=== PATIENT | male | born 1975 | race Caucasian/White ===

== ENCOUNTER 2017-08-22 05:34 | Day surgery (SDC) | payer BC ==
[2017-08-22] MEDS ORDERED: CEFAZOLIN 2 GM/50 ML (PMX) 50 ML IVPB (06:00)
[2017-08-22] MEDS ORDERED: BUPIVACAINE 0.5% (SDV) 30 ML INJ (06:48)
[2017-08-22] MEDS ORDERED: PROPOFOL 20 ML (07:39)
[2017-08-22] MEDS ORDERED: MIDAZOLAM 1 MG/ML 2 ML INJ (07:40)
[2017-08-22] MEDS ORDERED: METOCLOPRAMIDE 10 MG INJ (07:40)
[2017-08-22] MEDS ORDERED: KETOROLAC 30 MG INJ (07:40)
[2017-08-22] MEDS ORDERED: FENTAnyl 50 MCG/ML VIAL (07:40)
[2017-08-22] MEDS ORDERED: CEFAZOLIN 1 GM INJ (07:40)
[2017-08-22] MEDS ORDERED: ROPIVACAINE 0.5 % 30 ML VIAL (07:42)
[2017-08-22] MEDS ORDERED: EPHEDrine SULFATE 50 MG/5 ML SYG (08:05)
[2017-08-22] MEDS ORDERED: ONDANSETRON 4 MG INJ (08:11)
[2017-08-22] MEDS ORDERED: HYDROmorphONE (0.2 MG/ML) 10ML SYG IV ×3 (09:00)
[2017-08-22] MEDS ORDERED: DIPHENHYDRAMINE 50 MG INJ IV (09:00)
[2017-08-22] MEDS ORDERED: OXYCODONE/ACETAMINOPHEN (5/325) TAB PO ×2 (09:00)
[2017-08-22] MEDS: BUPIVACAINE 0.5% (SDV) 30 ML INJ INJ (10:00)
[2017-08-22] MEDS: POLYMYXIN/BACITRACIN 1L IRRIG (10:00)
[2017-08-22] MEDS: ONDANSETRON 4 MG INJ IV (10:43)
[2017-08-22] MEDS: MEPERIDINE 25 MG INJ IV (10:43)
== END 2017-08-22 12:40 | disposition home or self-care (01) ==
LOC: SDS 05:34
DX: M21.612 Bunion of left foot (principal); M20.42 Other hammer toe(s) (acquired), left foot
CPT/HCPCS: 28285; 73630-LT; 88304; 88311

== ENCOUNTER 2017-10-18 20:09 | Inpatient (IN) | payer BC ==
[2017-10-18] MEDS ORDERED: BISACODYL (EC) 5 MG TAB PO (22:00)
[2017-10-18] MEDS: SOD CHLORIDE 0.9% 1,000 ML IV (22:48)
[2017-10-19] MEDS: PANTOPRAZOLE (EC) 40 MG TAB PO (05:56)
[2017-10-19 05:57] LABS: ADD MAN DIFF? NO
[2017-10-19 06:03] LABS: WHITE BLOOD COUNT 5.3 10^3/ul (4.8-10.8)
[2017-10-19 06:03] LABS: BASOPHILS % 0.6 % (0.0-2.0); EOSINOPHILS # 0.2 10^3/ul (0.0-0.5); EOSINOPHILS % 3.6 % (0.0-7.0); HEMATOCRIT 38.5 % (42.0-52.0); HEMOGLOBIN 13.2 g/dl (14.0-18.0); LYMPHOCYTES # 1.9 10^3/ul (0.8-2.9); LYMPHOCYTES % 35.8 % (15.0-51.0); MEAN CORPUSCULAR HEMOGLOBIN 33.8 pg (29.0-33.0); MEAN CORPUSCULAR HGB CONC 34.3 g/dl (32.0-37.0); MEAN CORPUSCULAR VOLUME 98.5 fl (82.0-101.0); MEAN PLATELET VOLUME 10.4 fl (7.4-10.4); MONOCYTE # 0.3 10^3/ul (0.3-0.9); MONOCYTES % 6.4 % (0.0-11.0); NEUTROPHIL # 2.8 10^3/ul (1.6-7.5); NEUTROPHILS % 53.4 % (39.0-77.0); PLATELET COUNT 275 10^3/UL (140-415); RED BLOOD COUNT 3.91 10^6/ul (4.70-6.10); RED CELL DISTRIBUTION WIDTH 11.9 % (11.5-14.5)
[2017-10-19 06:39] LABS: ALANINE AMINOTRANSFERASE 24 IU/L (13-69); ALBUMIN 3.3 g/dl (3.3-4.9); ALBUMIN/GLOBULIN RATIO 1.26; ALKALINE PHOSPHATASE 51 IU/L (42-121); ANION GAP 8 (8-16); ASPARTATE AMINO TRANSFERASE 21 IU/L (15-46); BILIRUBIN,INDIRECT 0.7 mg/dl (0-1.1); BILIRUBIN,TOTAL 0.7 mg/dl (0.2-1.3); BLOOD UREA NITROGEN 12 mg/dl (7-20); CALCIUM 8.8 mg/dl (8.4-10.2); CARBON DIOXIDE 30 mmol/L (21-31); CHLORIDE 109 mmol/L (97-110); CREATININE 0.92 mg/dl (0.61-1.24); GLUCOSE 90 mg/dl (70-220); POTASSIUM 4.2 mmol/L (3.5-5.1); SODIUM 143 mmol/L (135-144); TOTAL PROTEIN 5.9 g/dl (6.1-8.1)
[2017-10-19] MEDS: CARBIDOPA XX (11:35)
[2017-10-19] MEDS: LEVODOPA XX (11:35)
[2017-10-19] MEDS ORDERED: HYDROCODONE/APAP (5/325) TAB PO (12:00)
[2017-10-19] MEDS: ACETAMINOPHEN 325 MG TAB PO (12:02)
[2017-10-19] MEDS: CEFAZOLIN 1 GM/50 ML (PMX) 50 ML IVPB ×2 (15:57→23:32)
[2017-10-19 17:25] LABS: AMPHETAMINE/METHAMPHETAMINE Negative (NEGATIVE); CANNABINOIDS Negative (NEGATIVE)
[2017-10-19 17:28] LABS: C-REACTIVE PROTEIN < 0.5 mg/dl (0.0-0.9)
[2017-10-19 17:29] LABS: BARBITURATES Negative (NEGATIVE); BENZODIAZEPINES Negative (NEGATIVE); COCAINE Negative (NEGATIVE); OPIATES Negative (NEGATIVE)
[2017-10-19 18:34] LABS: ERYTHROCYTE SEDIMENTATION RATE 5 mm/Hr (0-15)
[2017-10-19] MEDS: SOD CHLORIDE 0.9% 1,000 ML IV (19:14)
[2017-10-19] MEDS ORDERED: KETOROLAC 15 MG INJ IV (20:00)
[2017-10-19] MEDS: traMADol 50 MG TAB PO (20:53)
[2017-10-19] MEDS: LORAZEPAM 2 MG INJ IV (20:58)
[2017-10-20] MEDS: PANTOPRAZOLE (EC) 40 MG TAB PO (06:23)
[2017-10-20] MEDS: CEFAZOLIN 1 GM/50 ML (PMX) 50 ML IVPB ×3 (06:23→21:06)
[2017-10-20] MEDS: LEVODOPA XX (09:00)
[2017-10-20] MEDS: CARBIDOPA XX (09:00)
[2017-10-20] MEDS: CARBIDOPA/LEVODOPA (25/250) TAB PO ×3 (12:46→21:06)
[2017-10-20] MEDS ORDERED: BISACODYL (EC) 5 MG TAB PO (13:00)
[2017-10-20] MEDS: SOD CHLORIDE 0.9% 1,000 ML IV ×2 (14:00→18:16)
[2017-10-20] MEDS: MELOXICAM 7.5 MG TAB PO (14:41)
[2017-10-20] MEDS: CYCLOBENZAPRINE 10 MG TAB PO ×2 (14:41→21:06)
[2017-10-21] MEDS: PANTOPRAZOLE (EC) 40 MG TAB PO (05:51)
[2017-10-21] MEDS: CEFAZOLIN 1 GM/50 ML (PMX) 50 ML IVPB ×3 (05:51→21:41)
[2017-10-21] MEDS: MELOXICAM 7.5 MG TAB PO (09:12)
[2017-10-21] MEDS: CARBIDOPA/LEVODOPA (25/250) TAB PO ×4 (09:13→21:41)
[2017-10-21] MEDS: CYCLOBENZAPRINE 10 MG TAB PO ×3 (09:13→21:41)
[2017-10-21] MEDS: MAGNESIUM CITRATE 300 ML BTL PO (14:28)
[2017-10-21] MEDS: SOD CHLORIDE 0.9% 1,000 ML IV (16:51)
[2017-10-22] MEDS: PANTOPRAZOLE (EC) 40 MG TAB PO (05:42)
[2017-10-22] MEDS: CEFAZOLIN 1 GM/50 ML (PMX) 50 ML IVPB ×3 (05:42→22:24)
[2017-10-22] MEDS: SOD CHLORIDE 0.9% 1,000 ML IV ×2 (05:51→18:25)
[2017-10-22] MEDS: CYCLOBENZAPRINE 10 MG TAB PO ×3 (08:13→21:00)
[2017-10-22] MEDS: CARBIDOPA/LEVODOPA (25/250) TAB PO ×4 (08:13→21:00)
[2017-10-22] MEDS: MELOXICAM 7.5 MG TAB PO (08:13)
[2017-10-22 13:36] LABS: C-REACTIVE PROTEIN < 0.5 mg/dl (0.0-0.9)
[2017-10-22 14:19] LABS: ERYTHROCYTE SEDIMENTATION RATE 5 mm/Hr (0-15)
[2017-10-22 16:09] LABS: ADD UMIC NO; UR ASCORBIC ACID NEGATIVE (NEGATIVE); UR BILIRUBIN (Dip) NEGATIVE (NEGATIVE); UR BLOOD (Dip) NEGATIVE (NEGATIVE); UR CLARITY CLEAR (CLEAR); UR COLOR YELLOW (YELLOW); UR GLUCOSE (Dip) NEGATIVE (NEGATIVE); UR KETONES (Dip) TRACE mg/dL (NEGATIVE); UR LEUKOCYTE ESTERASE (Dip) NEGATIVE Leu/ul (NEGATIVE); UR NITRITE (Dip) NEGATIVE (NEGATIVE); UR TOTAL PROTEIN (Dip) NEGATIVE (NEGATIVE); UR UROBILINOGEN (Dip) NEGATIVE (NEGATIVE)
[2017-10-23] MEDS: PANTOPRAZOLE (EC) 40 MG TAB PO (05:42)
[2017-10-23] MEDS: CEFAZOLIN 1 GM/50 ML (PMX) 50 ML IVPB ×3 (05:42→22:15)
[2017-10-23 06:21] LABS: ADD MAN DIFF? NO
[2017-10-23 06:43] LABS: BASOPHILS % 0.7 % (0.0-2.0); EOSINOPHILS # 0.2 10^3/ul (0.0-0.5); EOSINOPHILS % 3.3 % (0.0-7.0); HEMATOCRIT 40.5 % (42.0-52.0); LYMPHOCYTES # 1.9 10^3/ul (0.8-2.9); LYMPHOCYTES % 31.3 % (15.0-51.0); MEAN CORPUSCULAR HEMOGLOBIN 33.7 pg (29.0-33.0); MEAN CORPUSCULAR HGB CONC 34.6 g/dl (32.0-37.0); MEAN CORPUSCULAR VOLUME 97.4 fl (82.0-101.0); MEAN PLATELET VOLUME 10.6 fl (7.4-10.4); MONOCYTE # 0.5 10^3/ul (0.3-0.9); MONOCYTES % 7.5 % (0.0-11.0); NEUTROPHIL # 3.5 10^3/ul (1.6-7.5); PLATELET COUNT 297 10^3/UL (140-415); RED BLOOD COUNT 4.16 10^6/ul (4.70-6.10); RED CELL DISTRIBUTION WIDTH 11.7 % (11.5-14.5)
[2017-10-23 07:01] LABS: ANION GAP 7 (8-16); BLOOD UREA NITROGEN 21 mg/dl (7-20); CALCIUM 8.7 mg/dl (8.4-10.2); CARBON DIOXIDE 31 mmol/L (21-31); CHLORIDE 108 mmol/L (97-110); CREATININE 0.86 mg/dl (0.61-1.24); GLUCOSE 89 mg/dl (70-220); POTASSIUM 4.1 mmol/L (3.5-5.1); SODIUM 142 mmol/L (135-144)
[2017-10-23] MEDS: CYCLOBENZAPRINE 10 MG TAB PO ×3 (08:56→22:15)
[2017-10-23] MEDS: MELOXICAM 7.5 MG TAB PO (08:56)
[2017-10-23] MEDS: CARBIDOPA/LEVODOPA (25/250) TAB PO ×4 (08:56→22:15)
[2017-10-23 16:55] LABS: CREATINE KINASE 40 IU/L (23-200)
[2017-10-23] MEDS: SOD CHLORIDE 0.9% 1,000 ML IV (18:39)
[2017-10-24] MEDS: CEFAZOLIN 1 GM/50 ML (PMX) 50 ML IVPB ×3 (05:11→21:28)
[2017-10-24] MEDS: PANTOPRAZOLE (EC) 40 MG TAB PO (05:11)
[2017-10-24] MEDS: MELOXICAM 7.5 MG TAB PO (09:04)
[2017-10-24] MEDS: CARBIDOPA/LEVODOPA (25/250) TAB PO ×5 (09:04→21:29)
[2017-10-24] MEDS: CYCLOBENZAPRINE 10 MG TAB PO ×3 (09:04→21:28)
[2017-10-24 14:11] LABS: ANA SCREEN NEGATIVE (NEGATIVE)
[2017-10-24] MEDS ORDERED: SOD CHLORIDE 0.9% 100 ML (15:57)
[2017-10-24] MEDS ORDERED: IOHEXOL 100 ML (15:57)
[2017-10-24] MEDS: SOD CHLORIDE 0.9% 1,000 ML IV ×2 (16:14→18:02)
[2017-10-25] MEDS: PANTOPRAZOLE (EC) 40 MG TAB PO (06:13)
[2017-10-25] MEDS: CEFAZOLIN 1 GM/50 ML (PMX) 50 ML IVPB ×2 (06:13→13:14)
[2017-10-25 06:16] LABS: ADD MAN DIFF? NO
[2017-10-25 06:19] LABS: BASOPHILS % 0.7 % (0.0-2.0); EOSINOPHILS # 0.2 10^3/ul (0.0-0.5); EOSINOPHILS % 3.5 % (0.0-7.0); HEMATOCRIT 40.1 % (42.0-52.0); HEMOGLOBIN 13.8 g/dl (14.0-18.0); LYMPHOCYTES # 1.8 10^3/ul (0.8-2.9); LYMPHOCYTES % 32.1 % (15.0-51.0); MEAN CORPUSCULAR HEMOGLOBIN 33.3 pg (29.0-33.0); MEAN CORPUSCULAR HGB CONC 34.4 g/dl (32.0-37.0); MEAN CORPUSCULAR VOLUME 96.9 fl (82.0-101.0); MEAN PLATELET VOLUME 10.1 fl (7.4-10.4); MONOCYTE # 0.5 10^3/ul (0.3-0.9); MONOCYTES % 8.4 % (0.0-11.0); NEUTROPHIL # 3.1 10^3/ul (1.6-7.5); NEUTROPHILS % 54.9 % (39.0-77.0); PLATELET COUNT 296 10^3/UL (140-415); RED BLOOD COUNT 4.14 10^6/ul (4.70-6.10); RED CELL DISTRIBUTION WIDTH 11.6 % (11.5-14.5)
[2017-10-25 06:19] LABS: WHITE BLOOD COUNT 5.7 10^3/ul (4.8-10.8)
[2017-10-25 06:51] LABS: ANION GAP 13 (8-16); BLOOD UREA NITROGEN 16 mg/dl (7-20); CALCIUM 8.5 mg/dl (8.4-10.2); CARBON DIOXIDE 27 mmol/L (21-31); CHLORIDE 107 mmol/L (97-110); CREATININE 0.77 mg/dl (0.61-1.24); GLUCOSE 84 mg/dl (70-220); POTASSIUM 4.3 mmol/L (3.5-5.1); SODIUM 143 mmol/L (135-144)
[2017-10-25 06:54] LABS: PHOSPHORUS 4.2 mg/dl (2.5-4.9)
[2017-10-25 06:54] LABS: MAGNESIUM 1.8 mg/dl (1.7-2.5)
[2017-10-25] MEDS: MELOXICAM 7.5 MG TAB PO (09:00)
[2017-10-25] MEDS: CARBIDOPA/LEVODOPA (25/250) TAB PO ×4 (09:22→21:32)
[2017-10-25] MEDS: CYCLOBENZAPRINE 10 MG TAB PO ×3 (09:22→21:32)
[2017-10-25] MEDS ORDERED: VITAMIN A & D 5 GM OINT PACKET TOP (09:47)
[2017-10-25] MEDS: DIPHENHYDRAMINE 25 MG CAP PO (13:14)
[2017-10-25] MEDS: SOD CHLORIDE 0.9% 1,000 ML IV (13:18)
[2017-10-25 13:37] LABS: ANA SCREEN NEGATIVE (NEGATIVE)
[2017-10-25 14:22] LABS: ANCA SCREEN NEGATIVE (NEGATIVE)
[2017-10-25] MEDS ORDERED: VANCOMYCIN IV PER PHARMACY XX (15:00)
[2017-10-25] MEDS: VANCOMYCIN 2 GM in SOD CHLORIDE 0.9% 500 ML IVPB (17:06)
[2017-10-25 18:06] LABS: MYELOPEROXIDASE ANTIBODY <1.0 AI; PROTEINASE-3 ANTIBODY <1.0 AI
[2017-10-26] MEDS: VANCOMYCIN 1.25 GM in SOD CHLORIDE 0.9% 250 ML IVPB ×2 (00:52→08:43)
[2017-10-26] MEDS: PANTOPRAZOLE (EC) 40 MG TAB PO (05:20)
[2017-10-26] MEDS: CYCLOBENZAPRINE 10 MG TAB PO ×3 (08:41→21:32)
[2017-10-26] MEDS: CARBIDOPA/LEVODOPA (25/250) TAB PO ×4 (08:41→21:32)
[2017-10-26] MEDS: MELOXICAM 7.5 MG TAB PO (08:42)
[2017-10-26 14:52] LABS: ACETYLCHOLINE RECEPTOR AB <0.30 nmol/L
[2017-10-26 15:35] LABS: VANCOMYCIN,TROUGH 24.6 ug/ml (10.0-20.0)
[2017-10-26] MEDS: FLUOXETINE 10 MG CAP PO (18:06)
[2017-10-26] MEDS: VANCOMYCIN 1.75 GM in SOD CHLORIDE 0.9% 500 ML IVPB (21:34)
[2017-10-27 05:06] LABS: INR 0.95; PROTIME 12.8 Sec (11.9-14.9)
[2017-10-27 05:07] LABS: PARTIAL THROMBOPLASTIN TIME 31.2 Sec (25.0-35.0)
[2017-10-27] MEDS: PANTOPRAZOLE (EC) 40 MG TAB PO (06:10)
[2017-10-27] MEDS: CYCLOBENZAPRINE 10 MG TAB PO ×4 (08:47→21:37)
[2017-10-27] MEDS: FLUOXETINE 10 MG CAP PO (08:47)
[2017-10-27] MEDS: CARBIDOPA/LEVODOPA (25/250) TAB PO ×4 (08:47→21:39)
[2017-10-27] MEDS: VANCOMYCIN 1.75 GM in SOD CHLORIDE 0.9% 500 ML IVPB ×2 (08:51→21:41)
[2017-10-27] MEDS ORDERED: LIDOCAINE 1% (MDV) 10 ML INJ (12:59)
[2017-10-27] MEDS: clonAZEPAM 0.5 MG TAB PO ×3 (13:00→21:00)
[2017-10-27] MEDS: MUPIROCIN 2% 22 GM OINT TOP (15:53)
[2017-10-27] MEDS: traMADol 50 MG TAB PO (16:47)
[2017-10-28] MEDS: PANTOPRAZOLE (EC) 40 MG TAB PO (06:29)
[2017-10-28] MEDS: FLUOXETINE 20 MG CAP PO (09:00)
[2017-10-28] MEDS ORDERED: MIDODRINE 5 MG TAB PO (09:00)
[2017-10-28] MEDS: CARBIDOPA/LEVODOPA (25/250) TAB PO ×4 (09:13→20:58)
[2017-10-28] MEDS: clonAZEPAM 0.5 MG TAB PO ×3 (09:13→20:58)
[2017-10-28] MEDS: MIDODRINE 5 MG TAB PO ×2 (09:14→17:36)
[2017-10-28] MEDS: CYCLOBENZAPRINE 10 MG TAB PO ×3 (09:14→20:58)
[2017-10-28] MEDS: MUPIROCIN 2% 22 GM OINT TOP (09:15)
[2017-10-28 09:16] LABS: CREATININE 0.74 mg/dl (0.61-1.24)
[2017-10-28 09:16] LABS: BLOOD UREA NITROGEN 14 mg/dl (7-20)
[2017-10-28 09:19] LABS: VANCOMYCIN,TROUGH 13.1 ug/ml (10.0-20.0)
[2017-10-28] MEDS: VANCOMYCIN 1.75 GM in SOD CHLORIDE 0.9% 500 ML IVPB ×2 (10:21→20:58)
[2017-10-29] MEDS: PANTOPRAZOLE (EC) 40 MG TAB PO (06:04)
[2017-10-29] MEDS: FLUOXETINE 20 MG CAP PO (09:00)
[2017-10-29] MEDS: clonAZEPAM 0.5 MG TAB PO ×3 (09:05→20:27)
[2017-10-29] MEDS: CARBIDOPA/LEVODOPA (25/250) TAB PO ×4 (09:05→20:27)
[2017-10-29] MEDS: CYCLOBENZAPRINE 10 MG TAB PO ×3 (09:05→20:27)
[2017-10-29] MEDS: VANCOMYCIN 1.75 GM in SOD CHLORIDE 0.9% 500 ML IVPB ×2 (09:06→20:27)
[2017-10-29] MEDS: MIDODRINE 5 MG TAB PO ×2 (09:06→17:00)
[2017-10-29] MEDS ORDERED: LIDOCAINE 1% (MDV) 10 ML INJ (14:40)
[2017-10-29 16:36] LABS: GLUCOSE,CSF 56 mg/dl (50-80)
[2017-10-29 16:36] LABS: CSF RBC 0 /uL (0-0); CSF WBC 4 /cmm (0-10); TOTAL PROTEIN,CSF 43 mg/dl (12-60)
[2017-10-29 16:45] LABS: CSF COLOR COLORLESS
[2017-10-29 16:45] LABS: CSF CLARITY CLEAR
[2017-10-29 16:47] LABS: CSF VOLUME 2.5 ml; CSF#TUBE COUNT TUBE#4; CSF#TUBES REC'D 4
[2017-10-30] MEDS: PANTOPRAZOLE (EC) 40 MG TAB PO (05:44)
[2017-10-30 06:42] LABS: ANION GAP 13 (8-16); BLOOD UREA NITROGEN 17 mg/dl (7-20); CALCIUM 8.5 mg/dl (8.4-10.2); CARBON DIOXIDE 30 mmol/L (21-31); CHLORIDE 104 mmol/L (97-110); CREATININE 0.86 mg/dl (0.61-1.24); GLUCOSE 87 mg/dl (70-220); SODIUM 143 mmol/L (135-144)
[2017-10-30] MEDS: MIDODRINE 5 MG TAB PO ×2 (09:00→18:35)
[2017-10-30] MEDS: FLUOXETINE 20 MG CAP PO (09:00)
[2017-10-30] MEDS: VANCOMYCIN 1.75 GM in SOD CHLORIDE 0.9% 500 ML IVPB ×2 (09:11→20:48)
[2017-10-30] MEDS: CYCLOBENZAPRINE 10 MG TAB PO ×3 (09:12→20:42)
[2017-10-30] MEDS: clonAZEPAM 0.5 MG TAB PO ×3 (09:12→20:42)
[2017-10-30] MEDS: CARBIDOPA/LEVODOPA (25/250) TAB PO ×4 (09:12→20:42)
[2017-10-31] MEDS: PANTOPRAZOLE (EC) 40 MG TAB PO (05:11)
[2017-10-31] MEDS: CARBIDOPA/LEVODOPA (25/250) TAB PO ×2 (08:17→13:52)
[2017-10-31] MEDS: MIDODRINE 5 MG TAB PO (08:17)
[2017-10-31] MEDS: clonAZEPAM 0.5 MG TAB PO ×2 (08:17→13:00)
[2017-10-31] MEDS: VANCOMYCIN 1.75 GM in SOD CHLORIDE 0.9% 500 ML IVPB (08:17)
[2017-10-31] MEDS: CYCLOBENZAPRINE 10 MG TAB PO ×2 (08:17→13:52)
[2017-10-31] MEDS: FLUOXETINE 20 MG CAP PO (08:18)
[2017-10-31] MEDS ORDERED: DOXYCYCLINE 100 MG TAB PO (21:00)
== END 2017-10-31 18:00 | DRG 57 ==
LOC: MS2 20:09
PROC: 009U3ZX Drainage of Spinal Canal, Percutaneous Approach, Diagnostic (ICD-10-PCS; principal; 2017-10-27)
PROC: B01B1ZZ Fluoroscopy of Spinal Cord using Low Osmolar Contrast (ICD-10-PCS; 2017-10-27)
PROC: 009U3ZX Drainage of Spinal Canal, Percutaneous Approach, Diagnostic (ICD-10-PCS; 2017-10-28)
PROC: B01B1ZZ Fluoroscopy of Spinal Cord using Low Osmolar Contrast (ICD-10-PCS; 2017-10-28)
DX: G20 Parkinson's disease (principal); L03.116 Cellulitis of left lower limb; L03.114 Cellulitis of left upper limb; T80.29XA Infection following other infusion, transfusion and therapeutic injection, initial encounter; Z72.0 Tobacco use; D64.9 Anemia, unspecified; R25.2 Cramp and spasm; M27.40 Unspecified cyst of jaw; M50.323 Other cervical disc degeneration at C6-C7 level; N50.82 Scrotal pain; R26.9 Unspecified abnormalities of gait and mobility; M48.07 Spinal stenosis, lumbosacral region; F32.89 Other specified depressive episodes
CPT/HCPCS: 70450; 70553; 72141; 72147; 72158; 73660; 73718; 74178; 80048; 80053; 80202; 80307; 81003; 82085; 82550; 82565; 82945; 82962; 83519; 83735; 84100; 84157; 84443; 84520; 85025; 85610; 85651; 85730; 86021; 86038; 86140; 87070; 89051; 92610; 93971; 97110; 97116; 97162; 97165; 97530; 99217

== ENCOUNTER 2018-06-25 21:52 | Inpatient (IN) | payer BC ==
[2018-06-25] MEDS ORDERED: ACETAMINOPHEN 325 MG TAB PO (23:30)
[2018-06-25] MEDS ORDERED: BISACODYL (EC) 5 MG TAB PO (23:30)
[2018-06-25 23:32] LABS: ADD MAN DIFF? NO
[2018-06-25 23:34] LABS: BASOPHILS % 0.6 % (0.0-2.0); EOSINOPHILS # 0.2 10^3/ul (0.0-0.5); EOSINOPHILS % 2.9 % (0.0-7.0); HEMATOCRIT 44.7 % (42.0-52.0); HEMOGLOBIN 15.3 g/dl (14.0-18.0); LYMPHOCYTES # 2.9 10^3/ul (0.8-2.9); MEAN CORPUSCULAR HEMOGLOBIN 33.4 pg (29.0-33.0); MEAN CORPUSCULAR HGB CONC 34.2 g/dl (32.0-37.0); MEAN CORPUSCULAR VOLUME 97.6 fl (82.0-101.0); MONOCYTE # 0.5 10^3/ul (0.3-0.9); MONOCYTES % 7.6 % (0.0-11.0); NEUTROPHIL # 3.3 10^3/ul (1.6-7.5); NEUTROPHILS % 47.8 % (39.0-77.0); PLATELET COUNT 283 10^3/UL (140-415); RED BLOOD COUNT 4.58 10^6/ul (4.70-6.10); RED CELL DISTRIBUTION WIDTH 11.5 % (11.5-14.5)
[2018-06-25] MEDS: morphine SULFATE/PF (2 MG/2 ML) SYG IV (23:37)
[2018-06-25 23:51] LABS: ANION GAP 11 (5-13); BLOOD UREA NITROGEN 16 mg/dl (7-20); CALCIUM 9.6 mg/dl (8.4-10.2); CARBON DIOXIDE 31 mmol/L (21-31); CHLORIDE 100 mmol/L (97-110); CREATININE 0.95 mg/dl (0.61-1.24); Estimated GFR > 60 mL/min (>60); GLUCOSE 89 mg/dl (70-220); POTASSIUM 3.9 mmol/L (3.5-5.1); SODIUM 142 mmol/L (135-144)
[2018-06-26] MEDS: morphine SULFATE/PF (2 MG/2 ML) SYG IV (06:08)
[2018-06-26] MEDS: PANTOPRAZOLE (EC) 40 MG TAB PO (06:08)
[2018-06-26] MEDS: DIPHENHYDRAMINE 25 MG CAP PO ×2 (11:48→22:42)
[2018-06-26 18:19] LABS: AMPHETAMINE/METHAMPHETAMINE Negative (NEGATIVE); BARBITURATES Negative (NEGATIVE); BENZODIAZEPINES Negative (NEGATIVE); CANNABINOIDS Negative (NEGATIVE); COCAINE Negative (NEGATIVE); OPIATES Positive (NEGATIVE)
[2018-06-26] MEDS: IBUPROFEN 400 MG TAB PO (22:01)
[2018-06-26] MEDS: DIPHENHYDRAMINE 2%/ZINC 28.4 GM CR TOP (23:00)
[2018-06-26] MEDS: LORAZEPAM 0.5 MG TAB PO (23:49)
[2018-06-27] MEDS: DIPHENHYDRAMINE 2%/ZINC 28.4 GM CR TOP ×4 (06:18→21:29)
[2018-06-27] MEDS: PANTOPRAZOLE (EC) 40 MG TAB PO (06:18)
[2018-06-27] MEDS ORDERED: INFLUENZA VIRUS VACCINE 0.5 ML (DISPENSING) IM* (10:00)
[2018-06-27] MEDS: IBUPROFEN 400 MG TAB PO ×2 (10:59→18:35)
[2018-06-27] MEDS: ONDANSETRON 4 MG INJ IV (18:35)
[2018-06-27] MEDS: LORAZEPAM 0.5 MG TAB PO (22:22)
[2018-06-28] MEDS: PANTOPRAZOLE (EC) 40 MG TAB PO (06:14)
[2018-06-28] MEDS: DIPHENHYDRAMINE 2%/ZINC 28.4 GM CR TOP ×2 (08:20→12:44)
[2018-06-28] MEDS: IBUPROFEN 400 MG TAB PO (11:07)
== END 2018-06-28 16:55 | disposition home health service (06) | DRG 57 ==
LOC: PP2 21:52
DX: G21.9 Secondary parkinsonism, unspecified (principal); M48.02 Spinal stenosis, cervical region; R53.1 Weakness; R52 Pain, unspecified; R51 Headache
CPT/HCPCS: 72141; 80048; 80307; 85025; 90686; 97110; 97161; 97530